=== PATIENT | female | born 1935 | race Caucasian/White ===

== ENCOUNTER → 2017-12-15 | Outpatient (CLI) | payer OTHER ==
[~2017-12-15] MED LIST: ACET-1175 PO; ASCO1CAP3 PO; CALC600T9 PO; CLC100 PO; MISCCAP80 PO
== END | disposition home or self-care (01) ==
LOC: C.PAPS 14:39
PROVIDERS: ATTEND Obstetrics & Gynecology
DX: Z01.419 Encounter for gynecological examination (general) (routine) without abnormal findings (principal); N81.11 Cystocele, midline

== ENCOUNTER 2018-06-15 10:20 | Inpatient (IN) | payer OTHER ==
[2018-05-22 13:30] VITALS: BMI 29.0
--- NOTE | 2018-05-30 13:39 | PAT Medication Instructions ---
Service Date May 30, 2018. Current Home Medication List Acetaminophen (Tylenol), 650 MG PO DAILY PRN for PRN Ascorbic Acid (Vitamin C), 500 MG PO QAM Calcium Carbonate-Vitamin D (Calcium + D), 1 TAB PO QAM Cholecalciferol (Vitamin D3), Unknown Dose PO QAM Cyanocobalamin (Vitamin B-12), Unknown Dose PO QAM Diclofenac (Voltaren ), Unknown Dose PO TID PRN for Pain Docusate Sodium (Docusate Sodium), 1 CAP PO UD PRN for Constipation Fish Oil ([employer]-3), 1 CAP PO QAM Flaxseed (Linseed) (Flax Seed Oil), 1 CAP PO QAM Lutein ([facility] Lutein), 1 CAP PO QAM Nitrofurantoin Macrocrystals (Macrodantin), 1 CAP PO BID Probiotic Product (Probiotic), 1 TAB PO QAM Medication Instructions For Your Scheduled Surgery - Hold the following medications 2 weeks prior to surgery: Fish Oil ([employer]-3), 1 CAP PO QAM Flaxseed (Linseed) (Flax Seed Oil), 1 CAP PO QAM Lutein ([employer] Lutein), 1 CAP PO QAM - Hold the following medications 7 days prior to surgery per your surgeon's instructions: Diclofenac (Voltaren ), Unknown Dose PO TID PRN for Pain - Hold the following medications the morning of surgery: Ascorbic Acid (Vitamin C), 500 MG PO QAM Calcium Carbonate-Vitamin D (Calcium + D), 1 TAB PO QAM Cholecalciferol (Vitamin D3), Unknown Dose PO QAM Cyanocobalamin (Vitamin B-12), Unknown Dose PO QAM Docusate Sodium (Docusate Sodium), 1 CAP PO UD PRN for Constipation Probiotic Product (Probiotic), 1 TAB PO QAM - Take the following medications the morning of surgery with a sip of water ( OTHERWISE NOTHING TO EAT OR DRINK AFTER MIDNIGHT): Acetaminophen (Tylenol), 650 MG PO DAILY PRN for PRN (if needed, may be taken up to four hours before surgery) - Take the following medications as scheduled the night before surgery: Acetaminophen (Tylenol), 650 MG PO DAILY PRN for PRN (if needed) Docusate Sodium (Docusate Sodium), 1 CAP PO UD PRN for Constipation (if needed) If you have any questions please call us at [phone] or [phone] or [phone]
--- NOTE | 2018-05-30 14:22 | DIAGNOSTIC IMAGING REPORT ---
TWO VIEW CHEST CLINICAL HISTORY: Preoperative examination. FINDINGS: PA and lateral chest radiographs are compared to study dated 11/26/2014. A 2-lead cardiac pacemaker is unchanged in position and partially secures the left mid chest. The heart is mildly enlarged and there is atherosclerotic calcification of the thoracic aorta. The pulmonary vasculature is noncongested. Chronic interstitial thickening is similar to previous. There is left basilar scarring/atelectasis. No airspace consolidation or pleural effusion is identified. There is no pneumothorax. The skeletal structures are osteopenic. Degenerative change is seen in the shoulders and thoracic spine. Calcified joint bodies are suggested in both shoulders. Cholecystectomy clips are identified in the right upper quadrant. IMPRESSION: 1. Mild cardiac enlargement and cardiac pacemaker. There is no radiographic evidence of congestive failure. 2. No airspace consolidation or pleural effusion is identified. Electronically signed by: Varinder Head M.D. 05/30/2018 2:21 PM Dictated Date/Time: 05/30/2018 2:19 PM
[2018-05-30 14:38] LABS: BASO ABS # 0.07 K/uL (0-0.2); EOS % 7.5 %; EOS ABS # 0.52 K/uL (0-0.5); HEMATOCRIT 38.2 % (37-47); HEMOGLOBIN 12.7 g/dL (12.0-16.0); IG# 0.01 K/uL (0.00-0.02); LYMPH % 22.7 %; LYMPH ABS # 1.57 K/uL (1.2-3.4); MEAN CELL VOLUME 94.8 fL (80-100); MEAN CORPUSCULAR HEMOGLOBIN 31.5 pg (25-34); MEAN CORPUSCULAR HGB CONC 33.2 g/dl (32-36); MEAN PLATELET VOLUME 9.4 fL (7.4-10.4); MONO % 12.2 %; MONO ABS # 0.84 K/uL (0.11-0.59); NEUT % 56.5 %; PLATELET COUNT 400 K/uL (130-400); RED CELL DISTRIBUTION WIDTH SD 45.3 fL (36.4-46.3); WHITE BLOOD COUNT 6.91 K/uL (4.8-10.8)
[2018-05-30 14:48] LABS: PTT PATIENT 27.7 SECONDS (21.0-31.0)
[2018-05-30 15:38] LABS: CALCIUM 8.9 mg/dl (8.5-10.1); CREATININE 0.89 mg/dl (0.60-1.20); POTASSIUM 4.4 mmol/L (3.5-5.1)
--- NOTE | 2018-06-13 12:44 | HISTORY & PHYSICAL EXAMINATION ---
DATE OF ADMISSION: 06/15/2018 CHIEF COMPLAINT: Primary osteoarthritis of the left shoulder. HISTORY OF PRESENT ILLNESS: Melonie is a pleasant 83-year-old female who has been dealing with chronic increasing left shoulder pain. It has been hurting her for about 10 years. It is getting to the point where it hurts on a daily basis. She cannot sleep at night. She has trouble doing any activities away from her body and she is unable to get up to her hair anymore. She says sometimes she has to go to bed early because the pain is so bad throughout the day. It makes her feel tired. She has elected to proceed with a shoulder arthroplasty. PAST MEDICAL HISTORY: Significant for heart disease with pacemaker placement. PAST SURGICAL HISTORY: Significant for cholecystectomy, bilateral total knee arthroplasties, and bilateral total hip arthroplasties. ALLERGIES: None. MEDICATIONS: Include diclofenac as needed for the shoulder pain. FAMILY HISTORY: Significant for heart disease. SOCIAL HISTORY: The patient is , has 6 children, never drinks, is mildly active. REVIEW OF SYSTEMS: She complains of severe left shoulder pain. All other pertinent review of systems are negative. PHYSICAL EXAMINATION: GENERAL: She is awake, alert and oriented x3. She is in no apparent distress. She is very pleasant. HEENT: Pupils equal, round, reactive to light. Extraocular movements intact. Oral mucosa is pink and moist. HEART: Regular rate per radial pulse. LUNGS: Domenica symmetrically bilaterally with no audible breath sounds. ABDOMEN: Soft, nontender, nondistended. MUSCULOSKELETAL: On physical examination of the left shoulder, actively she has about 30 degrees of forward elevation, 30 degrees of abduction. Passively, I can get her any further. She has a lot of pain and crepitus throughout her shoulder. She has significant tenderness to palpation of the anterior glenohumeral joint line. 5/5 muscle strength with external rotation. She is unable to do any full can testing because of lack of motion. IMAGING DATA: X-rays of the shoulder do show advanced arthritis with flattening of the humeral head, inferior osteophyte formation and [id number] articulation. IMPRESSION: Advanced osteoarthritis of the left shoulder. PLAN: Given her age and her very low functional level, will proceed with a reverse left shoulder arthroplasty. Postoperatively, she will be placed in an arm sling and kept overnight for postoperative medical management. She plans to be discharged to home in the next day with [facility].
[2018-06-15] VITALS (13 sets, daily range): BP systolic 92–133; BP diastolic 59–94; PULSE 59–78; TEMP 34.7–36.6; O2SAT 93–100; Ht 154.9 cm; Wt 71.8 kg
[~2018-06-15] VITALS: Ht 154.9 cm; Wt 71.8 kg
[2018-06-15] MEDS: TRANEXAMIC ACID INJ 1,000 MG x 2 Bags IV SCH ×4 (06:30→12:39)
[~2018-06-15 10:20] MED LIST changes: +ACETAMINOPHEN 500 MG TAB PO SCH; +ATROPINE SULFATE 0.1 MG/ML 5ML SYR IV PRN; +CEFAZOLIN 2000MG IV PUSH 15 ML IV SCH; +CHOL1000 PO; -CLC100 PO; +CLONIDINE HCL 100 MCG/ML SYRINGE ONE; +CYAN100T PO; +DICL1TAB5 PO; +DOCU100C31 PO; +EpHEDrine SULFATE INJ 50 MG/ML AMP IV PRN; +FAMOTIDINE 20 MG TAB PO SCH; +FENTANYL CITRATE INJ 50 MCG/1 ML 2 ML VIAL IV PRN; +FLAX10007 PO; +FLUMAZENIL 0.1 MG/1 ML 10 ML VIAL IV PRN; +GABAPENTIN 300 MG CAP PO SCH; +HYDROmorphone INJ 0.5 MG/0.5 ML SYR IV PRN; +LABETALOL HCL IV 5 MG/ML 20ML IV PRN; +LACTATED RINGER'S 1000ML 1,000 ML IV SCH; +LACTATED RINGER'S 1000ML IV SCH; +LUTE40CA2 PO; +NALOXONE HCL 0.4 MG/1 ML VIAL/CARP IV PRN; +NITR1CAP32 PO; +OMEG10007 PO; +ONDANSETRON INJ 2 MG/ML 2 ML VIAL IV PRN; +PHENYLEPHRINE 100MCG/ML 5ML SYR IV PRN; +ROPIVACAINE 0.5% 5 MG/ML 30 ML VIAL ONE; +ROPIVACAINE 5MG/ML 30 ML 150 MG, BUPIVACAINE 0.5% MPF INJ 30 ML, EpINEphrine HCL INJ 0.... INFIL SCH
--- NOTE | 2018-06-15 10:22 | History & Physical Bridge Note ---
H&P Re-Evaluation Bridge Note: I have examined the patient, reviewed the History & Physical and in the interval since the performance of the History & Physical I have noted the following changes of clinical significance: No changes noted
[2018-06-15] MEDS ORDERED: FENTANYL CITRATE INJ 50 MCG/1 ML 2 ML VIAL ONE (12:01)
[2018-06-15] MEDS ORDERED: MIDAZOLAM HCL 1 MG/ML 2ML VIAL ONE (12:02)
[2018-06-15] MEDS ORDERED: BACITRACIN 50000 UNIT VIAL ONE (12:30)
[2018-06-15] MEDS ORDERED: ORTHO JOINT ANESTHETIC ONE (12:30)
[2018-06-15] MEDS ORDERED: LIDOCAINE HCL 2% 2 ML VIAL (20MG/ML) ONE (13:09)
[2018-06-15] MEDS ORDERED: PROPOFOL IV EMULSION 10 MG/ML 20 ML VIAL ONE (13:09)
[2018-06-15] MEDS ORDERED: ONDANSETRON INJ 2 MG/ML 2 ML VIAL ONE ×4 (13:09→14:49)
[2018-06-15] MEDS ORDERED: ROCURONIUM BROMIDE 10 MG/ML 5 ML VIAL ONE (13:09)
[2018-06-15] MEDS ORDERED: DEXAMETHASONE SOD INJ 4 MG/ML VIAL ONE ×2 (13:09→13:47)
[2018-06-15] MEDS ORDERED: EpHEDrine SULFATE INJ 50 MG/ML AMP ONE (13:48)
[2018-06-15] MEDS ORDERED: PHENYLEPHRINE HCL INJ 10 MG/ML VIAL ONE (14:49)
[2018-06-15] MEDS ORDERED: NEOSTIGMINE METHYLSULFATE 5 MG/5 ML SYR ONE (14:50)
[2018-06-15] MEDS ORDERED: GLYCOPYRROLATE INJ 0.2 MG/ML VIAL ONE (14:50)
--- NOTE | 2018-06-15 15:04 | [facility] Post Operative Brief Note ---
Immediate Operative Summary Operative Date Jun 15, 2018. Pre-Operative Diagnosis Advanced Osteoarthritis of the Left Shoulder Post-Operative Diagnosis Advanced Osteoarthritis of the Left Shoulder Procedure(s) Performed Left Reverse Total Shoulder Arthroplasty Surgeon Dr Coleman Human Services Supervisor Surgeon(s) Juan Thomas PA-C Estimated Blood Loss 200ML Findings Consistent with Post-Op Diagnosis Specimens A: Left humeral head Anesthesia Type General Regional
[2018-06-15] MEDS ORDERED: BISACODYL 10 MG SUPP PR PRN (15:15)
[2018-06-15] MEDS ORDERED: SOD PHOSPHATE/SOD BIPHOSPHATE ENEMA 132 ML BTL PR PRN (15:15)
[2018-06-15] MEDS ORDERED: METOCLOPRAMIDE HCL INJ 5 MG/ML 2 ML VIAL IV PRN (15:15)
[2018-06-15] MEDS ORDERED: OXYCODONE HCL IR 5 MG TAB (IMMEDIATE RELEASE) PO PRN (15:15)
[2018-06-15] MEDS ORDERED: TRAMADOL HCL 50 MG TAB PO PRN (15:15)
[2018-06-15] MEDS ORDERED: CEFAZOLIN IV 1,000 MG in DEXTROSE 5% 50ML 50 ML IV SCH (15:15)
[2018-06-15] MEDS ORDERED: ONDANSETRON INJ 2 MG/ML 2 ML VIAL IV PRN (15:15)
[2018-06-15] MEDS ORDERED: MoRPHine SULFATE 2 MG/ML CARP IV PRN (15:15)
[2018-06-15] MEDS ORDERED: NALOXONE HCL 0.4 MG/1 ML VIAL/CARP IV PRN (15:15)
[2018-06-15] MEDS ORDERED: MAGNESIUM HYDROXIDE SUSP 30 ML UDC PO PRN (15:15)
--- NOTE | 2018-06-15 15:28 | OPERATIVE REPORT ---
DATE OF OPERATION: 06/15/2018 PREOPERATIVE DIAGNOSIS: Primary osteoarthritis of the left shoulder. POSTOPERATIVE DIAGNOSIS: Same. PROCEDURE: Reverse left total shoulder arthroplasty. SURGEON: Evaristo Coleman DO. DATA OPERATIONS MANAGER: Roderick Thomas PA-C, whose assistance was necessary for retraction and closure. ANESTHESIA: General with a left interscalene nerve block. COMPLICATIONS: None. CONDITION: Stable to PACU. IMPLANTS USED: I used a [employer] comprehensive reverse left shoulder arthroplasty system with a size 25 mm mini base plate, a single 30 mm central screw, 2 peripheral locking screws, a 36 mm eccentric glenosphere, a size 9 mini pressfit humeral stem, and a standard humeral tray and bearing. INDICATIONS: Melonie is a pleasant 83-year-old female who presented to my office with chronic worsening left shoulder pain. X-rays and clinical examination were diagnostic for advanced osteoarthritis of the left shoulder. Her pain was quite severe, and it was significantly affecting her daily life. After intense discussions in the office, considering her age and her medical condition, we elected to proceed with shoulder arthroplasty. It has been several years since her arm has been elevated above chest level, and I felt a reverse shoulder arthroplasty would give her the best result. OPERATION AND FINDINGS: On 06/15/2018, she arrived at [facility] for the above procedure. She was seen in the preoperative holding area, and the operative extremity was identified and signed. She was given the preoperative antibiotic and a left interscalene nerve block. She was taken back to the operating room, laid on table in supine position, and put under general anesthesia. She was then put into the beachchair position. The left shoulder was prepped and draped in sterile fashion. Timeout was done. The patient's operative extremity was appropriately identified. A deltopectoral approach was used. Dissection was taken down through the fascia, and the anterior shoulder was exposed. The long head of the biceps tendon was tenotomized, and the subscapularis was tenotomized off the lesser tuberosity. The supraspinatus was released. The proximal humerus was exposed. Sequential reaming of the humeral canal up to a size 9 reamer was done. Off that reamer, a proximal humeral resection guide was placed, and the proximal humerus was resected with 135 degrees of inclination and 25 degrees of retroversion. Inferior osteophytes were then removed, and the glenoid was exposed. Time was spent doing the complete circumferential labral release. A guide was placed in the inferior glenoid, and a guidepin was placed at 10 degrees of inclination. A 25 mm mini baseplate was then reamed. The final baseplate was then impacted into place. A single 30 mm central screw was placed followed by superior and inferior locking screws. A 36 mm eccentric glenosphere was then impacted into place. The proximal humerus was then exposed. Sequential broaching up to a size 9 broach was done. Off that broach, a standard humeral trial was used. The shoulder was reduced, brought through a full range of motion and felt to be stable. The shoulder was then dislocated. The broach was removed. The final size 9 mini humeral pressfit stem was then impacted into place. The standard humeral bearing was snapped on the humeral tray, and the ring lock mechanism was engaged. The humeral tray was then impacted onto the humeral stem. The shoulder was then reduced, brought through a full range of motion and felt to be stable. The surrounding soft tissues were injected with 100 mL of an orthopedic pain control cocktail. The subscapularis was then tenodesed back to the lesser tuberosity with transosseous FiberWire sutures and [id number] sutures. Hemostasis was controlled. The surrounding soft tissue was then irrigated with 3 L normal saline solution with bacitracin. Skin was closed with 2-0 Vicryl and 3-0 V-Loc suture and jo ann. She was then placed in a soft dressing and regular arm sling. She was then extubated, transferred to a [facility], and taken to the postanesthesia care unit in stable condition. She tolerated the procedure well. I attest to the content of the Intraoperative Record and any orders documented therein. Any exception s are noted below.
--- NOTE | 2018-06-15 15:57 | DIAGNOSTIC IMAGING REPORT ---
L SHOULDER MIN 2 VIEWS ROUTINE CLINICAL HISTORY: Post shoulder surgery. COMPARISON: Left shoulder radiographs October 25, 2017. FINDINGS: Alignment of the left shoulder arthroplasty is anatomic. There is no fracture or unexpected radiopaque foreign body. Dual lead left subclavian pacemaker is noted. IMPRESSION: Expected findings following left shoulder arthroplasty. Electronically signed by: Cruzito Ayoub M.D. 06/15/2018 3:55 PM Dictated Date/Time: 06/15/2018 3:54 PM
--- NOTE | 2018-06-15 15:59 | Anesthesiology Progress Note ---
Anesthesia Post Op Note Date & Time Jun 15, 2018 at 15:47 Vital Signs Pain Intensity: 0 Vital Signs Past 12 Hours Date Time Temp Pulse Resp B/P (MAP) Pulse Ox O2 Delivery O2 Flow Rate FiO2 06/15/18 15:40 64 16 121/76 97 Oxymask 3 06/15/18 15:30 60 16 122/65 100 Oxymask 5 06/15/18 15:21 36.0 60 16 115/83 100 Oxymask 5 06/15/18 10:52 36.5 64 18 130/94 96 Room Air Notes Mental Status: alert / awake / arousable, participated in evaluation Pt Amnestic to Procedure: Yes Nausea / Vomiting: adequately controlled Pain: adequately controlled Airway Patency, RR, SpO2: stable & adequate BP & HR: stable & adequate, see Notes Hydration State: stable & adequate Anesthetic Complications: no major complications apparent The patient is pacer dependent due to sick sinus syndrome. I spoke to the safety representative from [employer] in the preoperative area about the patient. She stated that a magnet could be placed over the pacemaker during the procedure to set it at a baseline rate of 100 to minimize the effects of cautery. An arterial line was placed in the patient preoperatively. The patient was intubated without any problems. A magnet was placed over the pacemaker in the OR which caused the heart rate to go up to 100 where the patient developed wide complexes and had a drop in blood pressure. A decision was made to proceed with sporadic magnet use if necessary. A discussion with Dr. Coleman relayed our concerns about the pacemaker and raised the possibility of using Bipolar cautery. Soon after the surgery began, I was called to the room by the perioperative nurse. According to the SCREW MACHINE OPERATOR [employer]ING[employer], Dr. Coleman attempted to try regular cautery. The patient appeared to be okay for about 20 seconds then was noted to have a rapid drop in her blood pressure with a HR increase to the 140s. The cautery was stopped, a magnet was placed over the pacemaker, and phenylephrine was given. The patient quickly rebounded and became hypertensive which she was upon my arrival to the room. The magnet was removed and Dr. Coleman agreed to use Bipolar for the case. The rest of the case proceeded uneventfully and the patient remained stable with her heart paced at her normal rate of 60. The patient was extubated in the OR and was wide awake in the OR stating her full name and having a conversation on the way to the PACU. The patient has been stable and awake in the PACU. I spoke to the hospitalist from [facility] who will follow the patient on the floor.
--- NOTE | 2018-06-15 16:30 | Medical Consult ---
Consultation Date of Consultation: Jun 15, 2018. Attending Physician: Evaristo Coleman DO Reason for Consultation: Svetlana-op Hypotension History of Present Illness 83 y/o F who was admitted on 06/15 s/p L reverse total shoulder with Dr. Coleman. Pt has hx of pacer dependent sick sinus syndrome. She has a [employer] dual chamber pacer that is set at 60bpm. Given the proximity of surgery to pt's pacer, surgery worked closely with [employer] regarding safety of device. They were using a magnet to control the pacer during surgery , however when pt's HR went up to 100 during surgery, she became hypoTN and with wide QRS complexes noted. Surgery was ultimately completed, however pt continued to be hypoTN to the 40s. She was given pressors and has been stable in the PACU. [employer] was contacted and stated that pacer does not need interrogated at this time. Pt states she feels a bit dizzy from anesthesia, but otherwise she is doing well post-op. She is hungry and has not been given PO yet. Pt denies fever, SOB, chest pain, abd pain, n/v/c/d, LE swelling. Past Medical/Surgical History SSS, pacer dependent OA Hx of syncope Family History Father and multiple brothers with hx of MD Social History Smoking Status: Never Smoker Alcohol Use: none Drug Use: none Allergies Coded Allergies: Meperidine (Verified Allergy, Unknown, rash, 06/15/18) Penicillins (Verified Allergy, Unknown, RASH, 06/15/18) Current Inpatient Medications Current Inpatient Medications Medications (Trade) Dose Ordered Sig/Sean Route Start Time Stop Time Status Last Admin Dose Admin Lactated Ringer's 1,000 ml @ 15 mls/hr Q24H IV 06/15/18 06:00 06/16/18 05:59 06/15/18 11:12 15 MLS/HR Lactated Ringer's 1,000 ml @ 60 mls/hr [id number] IV 06/15/18 06:00 06/15/18 22:39 Cefazolin Sodium 15 ml @ 3.75 mls/ min PREOP IV 06/15/18 06:00 06/15/18 18:00 06/15/18 13:19 3.75 MLS/MIN Acetaminophen (Tylenol Tab) 1,000 mg PREOP PO 06/15/18 06:00 06/15/18 18:00 06/15/18 11:13 1,000 MG Famotidine (Pepcid Tab) 20 mg PREOP PO 06/15/18 06:00 06/15/18 18:00 06/15/18 11:13 20 MG Gabapentin (Neurontin Cap) 300 mg PREOP PO 06/15/18 06:00 06/15/18 18:00 06/15/18 11:12 300 MG Metoclopramide HCl (Reglan Inj) 10 mg Q6H PRN IV 06/15/18 15:15 07/15/18 15:14 UNV Ondansetron HCl (Zofran Inj) 4 mg Q6H PRN IV 06/15/18 15:15 07/15/18 15:14 UNV Potassium Chloride 10 meq/ Sodium Chloride 1,005 ml @ 100 mls/hr Q10H3M IV 06/15/18 15:04 07/15/18 15:03 UNV Oxycodone HCl (Roxicodone Immediate Rel Tab) 5 mg Q4H PRN PO 06/15/18 15:15 06/29/18 15:14 UNV Acetaminophen 1000 mg/Empty Bag 100 ml @ 400 mls/hr Q8 IV 06/15/18 22:00 06/16/18 21:59 UNV Morphine Sulfate (MoRPHine SULFATE INJ) 2 mg Q2HWA PRN IV 06/15/18 15:15 06/29/18 15:14 UNV Naloxone HCl (Narcan Inj) 0.1 mg Q2M PRN IV 06/15/18 15:15 07/15/18 15:14 UNV Magnesium Hydroxide (Milk Of Magnesia Susp) 30 ml Q6H PRN PO 06/15/18 15:15 07/15/18 15:14 UNV Bisacodyl (Dulcolax Supp) 10 mg DAILY PRN ME 06/15/18 15:15 07/15/18 15:14 UNV Sodium Biphosphate/ Sodium Phosphate (Fleet Enema) 132 ml DAILY PRN ME 06/15/18 15:15 07/15/18 15:14 UNV Senna (Senokot Tab) 17.2 mg HS PO 06/15/18 21:00 07/15/18 20:59 UNV Docusate Sodium (coLACE CAP) 100 mg BID PO 06/15/18 21:00 07/15/18 20:59 UNV Multivitamins (Multivitamin Tab) 1 tab DAILY PO 06/16/18 09:00 07/16/18 08:59 UNV Cefazolin Sodium 1000 mg/Dextrose 57.5 ml @ 100 mls/hr Q8H IV 06/15/18 15:15 06/15/18 23:50 UNV Tramadol HCl (Ultram Tab) 50 mg Q4H PRN PO 06/15/18 15:15 07/15/18 15:14 UNV Review of Systems Pertinent positives and negatives reviewed in HPI--all others negative Physical Exam Date Time Temp Pulse Resp B/P (MAP) Pulse Ox O2 Delivery O2 Flow Rate FiO2 06/15/18 16:15 60 16 100/51 97 Nasal Cannula 2 06/15/18 16:00 60 16 116/65 97 Nasal Cannula 2 06/15/18 15:50 36.1 60 16 123/67 95 Room Air 06/15/18 15:40 64 16 121/76 97 Oxymask 3 06/15/18 15:30 60 16 122/65 100 Oxymask 5 06/15/18 15:21 36.0 60 16 115/83 100 Oxymask 5 06/15/18 10:52 36.5 64 18 130/94 96 Room Air General Appearance: WD/WN, no apparent distress Head: normocephalic, atraumatic Eyes: normal inspection, sclerae normal Respiratory/Chest: normal breath sounds, no respiratory distress Cardiovascular: regular rate, rhythm, no edema Abdomen/GI: non tender, soft Extremities/Musculoskelatal: no calf tenderness, no pedal edema Neurologic/Psych: alert, normal mood/affect (fatigued sounding), oriented x 3 Skin: normal color, warm/dry Assessment & Plan 83 y/o F who was admitted on 06/15 s/p L reverse total shoulder with Dr. Coleman. Pt has hx of pacer dependent sick sinus syndrome. She has a [employer] dual chamber pacer that is set at 60bpm. Given the proximity of surgery to pt's pacer, surgery worked closely with [employer] regarding safety of device. They were using a magnet to control the pacer during surgery , however when pt's HR went up to 100 during surgery, she became hypoTN and with wide QRS complexes noted. Surgery was ultimately completed, however pt continued to be hypoTN to the 40s. She was given pressors and has been stable in the PACU. [employer] was contacted and stated that pacer does not need interrogated at this time. HypoTN: as above and now stable VS as per usual post-op timing, then to Q2h. Discussed with nursing L shoulder pain: s/p reverse total shoulder DVT proph and diet as per ortho Pre-op Hb 12.7
[2018-06-15] MEDS: POTASSIUM CHLORIDE INJ 10 MEQ in SODIUM CHLORIDE 0.9% 1000ML 1,000 ML IV SCH (17:13)
[2018-06-15] MEDS: DOCUSATE SODIUM 100 MG CAP PO SCH (20:41)
[2018-06-15] MEDS ORDERED: SENNA 8.6 MG TAB PO SCH (21:00)
[2018-06-15] MEDS: ACETAMINOPHEN IV 1,000 MG in EMPTY BAG 0 ML IV SCH (21:41)
[2018-06-15] MEDS: CEFAZOLIN IV 1,000 MG in SYRINGE 0 ML IV SCH (21:42)
[2018-06-16] VITALS (8 sets, daily range): BP systolic 92–126; BP diastolic 60–66; PULSE 60–66; TEMP 36.2–37.9; O2SAT 91–100
[2018-06-16] MEDS: POTASSIUM CHLORIDE INJ 10 MEQ in SODIUM CHLORIDE 0.9% 1000ML 1,000 ML IV SCH (03:31)
[2018-06-16] MEDS: ACETAMINOPHEN IV 1,000 MG in EMPTY BAG 0 ML IV SCH (05:52)
[2018-06-16] MEDS: CEFAZOLIN IV 1,000 MG in SYRINGE 0 ML IV SCH (05:52)
[2018-06-16 06:25] LABS: HEMATOCRIT 32.4 % (37-47); HEMOGLOBIN 10.6 g/dL (12.0-16.0); MEAN CELL VOLUME 95.9 fL (80-100); MEAN CORPUSCULAR HEMOGLOBIN 31.4 pg (25-34); MEAN CORPUSCULAR HGB CONC 32.7 g/dl (32-36); PLATELET COUNT 282 K/uL (130-400); RED CELL DISTRIBUTION WIDTH CV 13.4 % (11.5-14.5); RED CELL DISTRIBUTION WIDTH SD 46.8 fL (36.4-46.3); WHITE BLOOD COUNT 14.44 K/uL (4.8-10.8)
[2018-06-16 07:03] LABS: CREATININE 0.95 mg/dl (0.60-1.20); POTASSIUM 4.6 mmol/L (3.5-5.1)
[2018-06-16] MEDS ORDERED: ULT50X PO (08:28)
--- NOTE | 2018-06-16 08:29 | Discharge Instructions ---
Discharge Instructions Date of Service Jun 16, 2018. Admission Reason for Admission: Chronic Rotator Cuff Tear Left Shoulder Discharge Discharge Diagnosis / Problem: Right Reverse Total Shoulder Discharge Goals Goal(s): Decrease discomfort, Improve function Activity Recommendations Activity Limitations: resume your previous activity . Instructions / Follow-Up Instructions / Follow-Up Activity and Therapy Recommendations: * Wear your sling for 3 weeks, unless otherwise instructed. You may remove your sling to shower and to dress, but otherwise, you should be in your sling at all times, including while sleeping * The shoulder replacement is very stable and you can use your hand while in the sling * Physical Therapy should start about 3-5 days from your day of surgery. Therapy will last about 8-12 weeks * You were shown a series of exercises in the hospital. Do these exercises daily including the exercises you were shown in physical therapy. Medications: * Narcotic You will likely be sent home from the hospital with a prescription for the narcotic pain medication that worked best throughout your stay. * Other medications may be prescribed for specific circumstances. If you have any questions, please call the office at . * Resume previous home medications unless otherwise instructed Dressing Care: If the incision is not draining then you may leave the jo ann open to air. If there is a little bit of drainage or if the jo ann are getting stuck on your clothing then cover the incision with a dry dressing. The jo ann will be removed at your 2 week follow-up appointment. Showering: You may shower 5 days from the day of surgery. Let the soapy shower water run over the jo ann and pat them dry. Do not scrub or soak the incision. Things To Watch For: * Drainage from the incision site that occurs more than one week after your surgery. * Increased redness at the incision site. * Fever above 102 degrees Fahrenheit. * Unusual chest pain or shortness of breath. * Call [facility] at with any of the above problems Follow-Up Visit: Follow-up with Dr. Coleman 2 weeks after your day of surgery. An appointment was probably scheduled when you signed-up for surgery in the office. If you have any questions call Office Instructions: More detailed instructions as well as Frequently Asked Questions were provided in a folder by our office when you signed-up for surgery. Please review these instructions when you get home. If you have any further questions or concerns, please feel free to call the office at [phone] Current Hospital Diet Patient's current hospital diet: Regular Diet Discharge Diet Recommended Diet: Regular Diet Procedures Procedures Performed: Left Reverse Total Shoulder Arthroplasty Pending Studies Studies pending at discharge: no Medical Emergencies . Who to Call and When: Medical Emergencies: If at any time you feel your situation is an emergency, please call 911 immediately. . Non-Emergent Contact Non-Emergency issues call your: Surgeon Call Non-Emergent contact if: wound has increased drainage, wound has increased redness . "Provider Documentation" section prepared by Evaristo Coleman. .
[2018-06-16] MEDS: DOCUSATE SODIUM 100 MG CAP PO SCH (08:59)
[2018-06-16] MEDS ORDERED: NURSING VERBAL MED ORDER ONE (09:00)
[2018-06-16] MEDS ORDERED: MULTIVITAMIN TAB PO SCH (09:00)
--- NOTE | 2018-06-16 09:01 | PROGRESS NOTE ---
DATE: 06/16/2018 CHIEF COMPLAINT: Status post left reverse shoulder arthroplasty postop day #1. PROGRESS: Melonie was seen and examined at bedside today. Overall, she is doing very well. She has very little pain in her shoulder. She was able to get some sleep last night. She has no complaints. PHYSICAL EXAMINATION: LEFT SHOULDER: The dressing is clean and dry. She is wearing her sling as instructed. Her radial, median and ulnar nerves are checked and intact at her wrist. Her axillary nerve was not definitively checked yet. LABORATORY DATA: She has an H and H today of 10.6 and 32.4. Her glucose is 136. Her vital signs are stable on room air. She is pacing at 60. She is slightly hypotensive, but she is asymptomatic with it. She is voiding on her own. IMAGING DATA: X-rays postoperatively of the left shoulder show the prosthesis to be in anatomic alignment without any evidence of fracture, dislocation or loosening. IMPRESSION: Status post reverse left shoulder arthroplasty postop day #1. PLAN: At this point, she is doing very well. She has been seen by the medical team and her heart has been monitored closely. She can get physical therapy today. If it is okay with the medicine team, she can be discharged to home later today with [facility].
--- NOTE | 2018-06-16 09:30 | DISCHARGE SUMMARY ---
DISCHARGE DIAGNOSIS: Primary osteoarthritis of the left shoulder. PROCEDURE: Left reverse shoulder arthroplasty on 06/15/[address] Evaristo Coleman. DISCHARGE INSTRUCTIONS: 1. Tramadol 50 mg every 4 hours as needed for pain. 2. Tylenol 650 mg as needed. 3. Continue all other [id number] and prescribed vitamins, minerals and supplementations. 4. Left arm sling for 3 weeks. 5. Follow up with Dr. Coleman in 2 weeks. 6. Call the office of Dr. Coleman with any questions or concerns. HOSPITAL COURSE: Melonie is a pleasant 83-year-old female who presented to my office with severe increasing left shoulder pain. X-rays and clinical examination were diagnostic for primary osteoarthritis of the left shoulder. Her shoulder was destroying her quality of life. After extensive discussions, given her health and her age, she elected to proceed with a shoulder replacement. On 06/15/2018, she arrived at [facility] and underwent a left reverse shoulder arthroplasty without complication. She had a general anesthetic and a left interscalene nerve block. Postoperatively, there were some concerns about her pacemaker, so medicine was consulted. Fortunately, she was pacing well and she was discharged to general orthopedic floor. Her hospital course was otherwise uneventful. On postop day #1, her H and H was stable at 10.6 and 32.4. Her glucose is 136. Her vital signs were all stable while pacing at 60. She was able to participate well with physical therapy, doing hand, wrist, elbow and pendulum exercises. When she had final clearance from the medicine team, she was subsequently discharged to home with [facility] and the above instructions.
--- NOTE | 2018-06-16 12:29 | Progress Note ---
Internal Med Progress Note Date of Service: Jun 16, 2018. Provider Documentation: SUBJECTIVE: Patient denies of any pain or discomfort, No dizzy spells or lightheadedness Vital signs stable Twelve-lead EKG shows normal sinus rhythm with heart rate of 64 No pain or discomfort on the left shoulder, postsurgical site Medically stable to be discharged home today OBJECTIVE: Vital Signs-as noted below Exam: General-very pleasant, no sign of distress Eyes-sclera nonicteric, pupils bilateral equal reactive to light extraocular muscles intact ENT-moist oral mucosa Neck-supple, no JVD, no carotid bruit, no thyromegaly, trachea midline Lungs- clear to auscultate, no wheeze or rales Heart-regular S1 and S2 no murmur gallop Abdomen- soft nontender, bowel sounds active Extremities-status post left shoulder rotator cuff repair/surgery, left arm sling No lower extremity edema, no rash or deformity Neuro-no focal neurological deficit Lab data as noted below. ASSESSMENT & PLAN: SICK SINUS SYNDROME/STATUS POST PACEMAKER PLACEMENT -Patient follows with cardiology at [place] -Patient has a [employer] dual-chamber pacemaker which is set at 60 bpm - during repair of left rotator cuff/shoulder-[employer] team worked very closely with orthopedic surgery regarding safety of the device -Intraoperatively patient was tachycardic/and hypertensive with wide-complex QRS noted -Required to be on pressors transiently in PACU for persistent hypotension -Patient was evaluated by hospitalist team with [facility] yesterday -[employer] was contacted and stated patient does not need to be interrogated at this time patient had uneventful Night, -This morning did not had any complaint of shortness of breath, dizzy spell or lightheadedness Vitals shows heart rate 66/blood pressure 124/66; 96% pulse oximetry no room air -Twelve-lead EKG done showed normal sinus rhythm With occasional pacer spikes -Patient is stable to be discharged home, will be followed by her cardiology at [place] -Family medicine follow-up arranged with Dr. Smith at [facility] next week LEFT SHOULDER PAIN/ARTHRITIS Status post reverse left shoulder arthroplasty done by Dr. Coleman on 7 2017 POD#1 Recovering well postop Pain well controlled Patient is stable to be discharged home by orthopedics today Patient has very little pain in left shoulder Dressing on left shoulder is clean and dry Postoperative x-ray of left shoulder shows: Prosthesis to be in anatomic alignment without any evidence of fracture, dislocation or loosening Patient is stable to be discharged home- Arrangement made-for home health visiting nurse via [facility] CODE STATUS: Full code DVT PROPHYLAXIS By orthopedics DISPOSITION Per medicine patient is stable to be discharged home Vital Signs: Date Time Temp Pulse Resp B/P (MAP) Pulse Ox O2 Delivery O2 Flow Rate FiO2 06/16/18 11:47 36.2 66 20 124/66 (85) 96 Room Air 06/16/18 09:02 36.9 06/16/18 08:09 37.9 64 18 126/62 (83) 95 Room Air 06/16/18 07:33 Room Air 06/16/18 05:00 36.2 60 16 95/60 (72) 91 Room Air 06/16/18 03:30 91 Room Air 06/16/18 03:00 36.2 64 18 92/64 (73) 100 Nasal Cannula 2.0 06/16/18 01:00 36.3 60 18 92/64 (73) 99 Nasal Cannula 2.0 06/15/18 23:00 36.6 63 18 113/70 (84) 93 Nasal Cannula 2.0 06/15/18 22:32 36.4 06/15/18 22:07 36.5 06/15/18 21:37 36.3 59 16 95/60 (72) 99 Nasal Cannula 2.0 06/15/18 20:52 35.9 78 16 109/65 (80) 99 Nasal Cannula 2.0 06/15/18 20:04 34.7 06/15/18 19:35 Nasal Cannula 2.0 06/15/18 19:30 60 16 92/59 (70) 97 Nasal Cannula 2.0 06/15/18 18:23 36.6 70 14 133/82 (99) 99 Nasal Cannula 2.0 06/15/18 18:15 36.4 06/15/18 17:27 35.6 60 15 100/65 (77) 96 Nasal Cannula 2.0 06/15/18 17:05 35.6 60 14 120/78 (92) 100 Nasal Cannula 2.0 06/15/18 16:25 36.4 62 14 99/64 (76) 94 Nasal Cannula 2.0 06/15/18 16:25 Nasal Cannula 2.0 06/15/18 16:25 94 Nasal Cannula 2.0 06/15/18 16:15 60 16 100/51 97 Nasal Cannula 2 06/15/18 16:00 60 16 116/65 97 Nasal Cannula 2 06/15/18 15:50 36.1 60 16 123/67 95 Room Air 06/15/18 15:40 64 16 121/76 97 Oxymask 3 06/15/18 15:30 60 16 122/65 100 Oxymask 5 06/15/18 15:21 36.0 60 16 115/83 100 Oxymask 5 Lab Results: Results Past 24 Hours Test 06/16/18 05:58 Range/Units White Blood Count 14.44 4.8-10.8 K/uL Red Blood Count 3.38 4.2-5.4 M/uL Hemoglobin 10.6 12.0-16.0 g/dL Hematocrit 32.4 37-47 % Mean Corpuscular Volume 95.9 80-100 fL Mean Corpuscular Hemoglobin 31.4 25-34 pg Mean Corpuscular Hemoglobin Concent 32.7 32-36 g/dl RDW Standard Deviation 46.8 36.4-46.3 fL RDW Coefficient of Variation 13.4 11.5-14.5 % Platelet Count 282 130-400 K/uL Mean Platelet Volume 9.0 7.4-10.4 fL Sodium Level 136 136-145 mmol/L Potassium Level 4.6 3.5-5.1 mmol/L Chloride Level 105 98-107 mmol/L Carbon Dioxide Level 23 21-32 mmol/L Anion Gap 8.0 3-11 mmol/L Blood Urea Nitrogen 18 7-18 mg/dl Creatinine 0.95 0.60-1.20 mg/dl Est Creatinine Clear Calc Drug Dose 39.2 ml/min Estimated GFR () 63.3 Estimated GFR (Non- 54.6 BUN/Creatinine Ratio 18.5 10-20 Random Glucose 136 70-99 mg/dl Calcium Level 8.0 8.5-10.1 mg/dl
== END 2018-06-16 13:30 | disposition home health service (06) | DRG 483 ==
LOC: C.ACU 10:20 → C.3E 11:09 → ENRESERV 16:09
PROVIDERS: ADMIT Orthopaedic Surgery; ATTEND Orthopaedic Surgery
PROC: 0RRK00Z Replacement of Left Shoulder Joint with Reverse Ball and Socket Synthetic Substitute, Open Approach (ICD-10-PCS; principal; 2018-06-15 13:00)
DX: M19.012 Primary osteoarthritis, left shoulder (principal); Z79.899 Other long term (current) drug therapy; I49.5 Sick sinus syndrome; Z95.0 Presence of cardiac pacemaker; I95.9 Hypotension, unspecified